=== PATIENT | male | born 1945 | race Caucasian/White ===

== ENCOUNTER → 2018-05-01 15:24 | Outpatient (CLI) | payer SELFPAY ==
[2018-05-01 16:51] LABS: Absolute Lymphocyte Count 1.88 X10^3/ul (0.83-4.51); Absolute Neutrophil Count 3.7 X10^3/uL (2.0-7.7); Basophil# 0.03 X10^3/uL; Basophil% 0.4 % (0-1); Eosinophil# 0.28 X10^3/uL; Hematocrit 46.9 % (40-54); Hemoglobin 16.1 g/dl (13.0-16.5); Lymphocyte # 1.88 X10^3/ul (4.0); Lymphocyte % 26.9 % (19-41); Mean Corp Hgb Conc 34.3 g/gl (32-36); Mean Corpuscular Hgb 31.9 pg (27.0-32.0); Mean Corpuscular Volume 93.1 fL (80-94); Mean Platelet Vol. 11.5 fl (6.2-12.0); Monocyte% 15.8 % (0-10); Neutrophil # 3.68 X10^3/uL (2.7-7.7); Neutrophil % 52.8 % (47-70); Platelet Count 129 K/mm3 (150-450); RBC Distribution Width CV 13.6 % (11.6-14.6); Red Blood Count 5.04 M/mm3 (4.6-6.2)
[2018-05-01 16:52] LABS: POSITIVE COUNT NO; POSITIVE DIFFERENTIAL NO; POSITIVE MORPHOLOGY NO
[2018-05-01 17:00] LABS: Uric Acid 5.8 mg/dL (3.5-7.2)
== END ==
PROVIDERS: Visit Provider Nurse Practitioner
DX: M10.9 Gout, unspecified (principal)
CPT/HCPCS: 84550; 85025